=== PATIENT | male | born 1960 | race Caucasian/White ===

== ENCOUNTER 2017-05-26 09:56 | Emergency (ER) | payer SELFPAY ==
--- NOTE | ~2017-05-26 | ER ---
PATIENT'S NAME: JANNY WEBSTER [facility] AGE: 56 Y [address] ROOM: [place] [id number] LOCATION: [facility] ADMIT DATE: 05/26/2017 ER/Outpatient Report DISCHARGE DATE: 05/26/2017 FAMILY PHYSICIAN: Tara Delgado MD ATTENDING PHYSICIAN: Huey Little Time of Arrival: 1000 hours. Time of Evaluation: 1025 hours. CHIEF COMPLAINT: Left toe injury. HISTORY OF PRESENT ILLNESS: The patient is a 56-year-old male who presents to the emergency department today with a chief complaint of toe injury. He reports he stubbed his toe 5 days prior to arrival. He continues to have pain on the left side of his foot and toe. He reports the pain is sharp, it is mild in severity. It is worse with walking. PAST MEDICAL HISTORY: Colorectal cancer, currently in remission; COPD; hypertension; anxiety; and insomnia. PAST SURGICAL HISTORY: Colostomy, neck surgery x2, and elbows bilaterally. SOCIAL HISTORY: The patient has a history of smoking, quit 9 years ago. Drinks alcohol occasionally. Denies any illicit drug use. ALLERGIES: NO KNOWN DRUG ALLERGIES. MEDICATIONS: Please see list. PRIMARY CARE DOCTOR: Tara Delgado M.D. REVIEW OF SYSTEMS: All systems are reviewed by myself and are negative with the exception of those discussed in the HPI and past medical history. PHYSICAL EXAMINATION: VITAL SIGNS: Weight 72.5 kg, blood pressure 139/76, pulse 100, respiratory PATIENT'S NAME: JANNY WEBSTER [facility] AGE: 56 Y [address] ROOM: [place] [id number] LOCATION: [facility] ADMIT DATE: 05/26/2017 ER/Outpatient Report DISCHARGE DATE: 05/26/2017 FAMILY PHYSICIAN: Tara Delgado MD ATTENDING PHYSICIAN: Huey Little rate 18, temperature 97.3, and oxygen saturation 98% on room air. GENERAL: The patient is a 56-year-old male, who appears as stated age, in mild acute distress secondary to pain. HEENT: Head normocephalic and atraumatic. Pupils are equal, round, and reactive to light. NECK: Supple. There is no nuchal rigidity. MUSCULOSKELETAL: The patient moves all 4 extremities. Does have tenderness to palpation of the left fifth digit. There is no swelling noted. SKIN: Warm and dry. There are no rashes or lesions. There is no surrounding erythema. No open wound to the left foot. LABORATORY DATA AND X-RAYS: A 3-view x-ray of the left foot is obtained, is interpreted by myself, does show fracture through the proximal phalanx at the distal aspect of it. IMPRESSION: 1. Acute closed distal aspect of the fifth proximal phalanx of the foot fracture. 2. Initial visit. EMERGENCY DEPARTMENT COURSE: The patient was brought back to the examination room. Seen and evaluated by myself. X-rays are obtained as described above. I have discussed results with the patient. I have recommended follow up with Dr. Skaggs with Orthopedic Surgery in 7 to 10 days. I have also asked to follow up with primary care doctor in 2 to 3 days. I have written a prescription for Naprosyn for home. I have discussed return to care instructions including worsening symptoms or any other concerns. Return to the emergency department as soon as possible. The patient is also placed in a postop shoe. He has discussed rest, ice, compression, and elevation. The patient does have crutches at home, he will use his crutches until seen by primary care or Orthopedic Surgery. DISPOSITION: The patient discharged home in good condition. DO ADAL HARPER/modl /[id number] d: 05/26/17 1807 t: 05/27/17 0752, OUTPATIENT REPORT
[~2017-05-26 09:56] MED LIST: ANORO ELLIPTA1 EACH; ASPIRIN (CHILDR81 MG; BENTYL20 MG; CARDIZEM SR120 MG; EFFEXOR XR75 MG; FLOMAX0.4 MG; LIPITOR10 MG; LIPITOR40 MG; PRILOSEC10 MG; PRINIVIL (ZESTR20 MG; PROZAC10 MG PO; SYMBICORT 16010.2 GM; ULTRAM50 MG; VOLTAREN 1% GE100 GM; XANAX0.25 MG; ZESTRIL2.5 MG
== END 2017-05-26 11:01 | disposition disaster alternative care site (69) ==
LOC: GACC 09:56
DX: S92.512A Displaced fracture of proximal phalanx of left lesser toe(s), initial encounter for closed fracture (principal); I10 Essential (primary) hypertension; F41.9 Anxiety disorder, unspecified; J44.9 Chronic obstructive pulmonary disease, unspecified; C19 Malignant neoplasm of rectosigmoid junction; Z98.890 Other specified postprocedural states; Z87.891 Personal history of nicotine dependence; Z79.899 Other long term (current) drug therapy; W22.8XXA Striking against or struck by other objects, initial encounter